=== PATIENT | male | born 1980 | race Caucasian/White ===

== ENCOUNTER 2018-08-25 21:58 | Emergency (ER) | payer SELFPAY ==
[~2018-08-25] VITALS: Ht 165.1 cm; Wt 63.5 kg
--- NOTE | 2018-08-25 23:13 | Diagnostic Imaging Report ---
EXAM: XR Right Shoulder Complete, 2 or More Views CLINICAL HISTORY: PAIN TECHNIQUE: Two or more views of the right shoulder. COMPARISON: No relevant prior studies available. FINDINGS: Bones/joints: Anterior dislocation of the shoulder without evidence of fracture. Soft tissues: Unremarkable. IMPRESSION: Anterior dislocation of the shoulder without evidence of fracture.
[2018-08-25 23:14] VITALS: BP 109/71
[2018-08-25] MEDS ORDERED: Propofol 200mg/20ml IV ONE (23:30)
[2018-08-25] MEDS ORDERED: NAPROXEN375 M2 ORAL (23:36)
--- NOTE | 2018-08-25 23:37 | Emergency Room Report ---
History of Present Illness General Chief Complaint: Shoulder Injury Source: Patient Present Illness [facility] This patient is here with right anterior shoulder dislocation shortly [employer]IST[employer] after lifting RUE. This has happened perhaps seven times over 20 years. No other issues. Allergies: Coded Allergies: No Known Allergies (Unverified , 08/25/18) Nursing Documentation-[facility] Past Medical History: No Stated History Review of Systems Constitutional: Reports: no symptoms, see HPI Eye: Reports: no symptoms ENT: Reports: no symptoms Respiratory: Reports: no symptoms Cardiovascular: Reports: no symptoms Gastrointestinal: Reports: no symptoms Genitourinary: Reports: no symptoms Musculoskeletal: Reports: see HPI, joint pain Skin: Reports: no symptoms Psychiatric: Reports: no symptoms Neurological: Reports: no symptoms Endocrine: Reports: no symptoms Hematologic/Lymphatic: Reports: no symptoms Allergic: Reports: no symptoms All Other Systems: negative except mentioned in HPI Physical Exam Vital Signs Date Time Temp Pulse Resp B/P (MAP) Pulse Ox O2 Delivery O2 Flow Rate FiO2 08/25/18 22:05 98.3 67 18 109/71 98 Room Air 98.2 Sp02 EP Interpretation: reviewed, normal General Appearance: normal inspection, well appearing, no apparent distress, alert, GCS 15, non-toxic Head: normocephalic, atraumatic Eyes: bilateral eye normal inspection, bilateral eye PERRL, bilateral eye EOMI ENT: normal ENT inspection, hearing grossly normal, normal pharynx, no angioedema, normal voice, moist mucus membranes Neck: normal inspection, full range of motion, supple, no meningismus, no bony tend Respiratory: normal inspection, lungs clear, normal breath sounds, no rhonchi, no respiratory distress, no retraction, no accessory muscle use, no wheezing Cardiovascular #1: normal inspection, regular rate, rhythm, no edema Gastrointestinal: normal inspection, normal bowel sounds, non tender, soft, no mass, non-distended Musculoskeletal: gait/station normal, normal range of motion, other - right anterior shoulder dislocation Neurologic: normal inspection, alert, oriented x3, responsive, motor strength/ tone normal Psychiatric: normal inspection, judgement/insight normal, memory normal Suicide Risk Assessment: Suicidal Ideation: No Had intent to initiate attempt: No Pt's plan for suicide attempt: No Has means to complete attempt: No Skin: normal inspection, normal color, no rash, warm/dry Medical Decision Making Diagnostic Impression: Primary Impression: Shoulder dislocation, recurrent ER Course Procedure: Conscious sedation by Ran Edwards MD. Time: 1145 pm Duration: 32 minutes total. Written consent was obtained and placed in the chart. The patient last ate 4 hours before the procedure. ASA classification was assessed to be 1. The patient was given IV etomidate under my direct supervision and I was at the bedside during the entire procedure. Respiratory therapy was present to assist and the RN at the bedside. Continuous pulse oximetry and cardiac monitoring was in place. The patient did not have any episodes of apnea or oxygen desaturation during the procedure. The patient was observed until return of normal level of alertness and appears to have tolerated the procedure well and without complication. Indication: Shoulder dislocation. Shoulder reduction was performed by traction/countertraction. A palpable "pop" was appreciated during reduction and the shoulder appeared to have a normal contour immediately after. A sling was applied at this time. A post-reduction shoulder x-ray was ordered to confirm reduction and was interpreted by me as showing successful reduction. Neurovascular exam normal after reduction Other X-Ray Diagnostic Results Other X-Ray Diagnostic Results : # of Views/Limited Vs Complete: 2 View Indication: Pain EP Interpretation: Yes Interpretation: no soft tissue swelling, no fractures, other - anterior humeral head dislocation Last Vital Signs Date Time Temp Pulse Resp B/P (MAP) Pulse Ox O2 Delivery O2 Flow Rate FiO2 08/25/18 23:14 98.2 67 18 109/71 98 Room Air 98.2 Status: improved Reevaluation Impression repeat XR: reduced dislocation, no fracture seen Disposition: HOME, SELF-CARE Condition: Stable Scripts Naproxen* (NAPROXEN*) 375 Mg Tablet. 375 MG ORAL TWICE A DAY for 10 Days, #20 TAB Prov: Tanner Edwards M.D. 08/25/18 Patient Instructions: Shoulder Dislocation Tanner Edwards M.D. Aug 25, 2018 23:37
[2018-08-26 00:17] VITALS: BP 107/87
[2018-08-26 00:22] VITALS: BP 102/73
[2018-08-26 00:27] VITALS: BP 98/59
[2018-08-26 01:30] VITALS: BP_SYST 104; BP_SYST 107; BP_DIAS 68; BP_DIAS 87
--- NOTE | 2018-08-26 01:30 | Diagnostic Imaging Report ---
EXAM: XR Right Shoulder Single View CLINICAL HISTORY: PAIN TECHNIQUE: Single view right shoulder. COMPARISON: Right shoulder x-ray dated 08/25/19 at 2244 FINDINGS: Bones/joints: Successful reduction of the previously described anterior dislocation. No acute fracture. Soft tissues: Unremarkable. IMPRESSION: Successful reduction of the previously described anterior dislocation. No acute fracture.
[2018-08-26 01:39] VITALS: BP 104/68
== END 2018-08-26 01:30 | disposition home or self-care (01) ==
LOC: EDSEX 21:58 → EMR 08-26 00:02
DX: M24.411 Recurrent dislocation, right shoulder (principal)
CPT/HCPCS: 23655; 73030; 96374; 99284; J2704